=== PATIENT | male | born 1990 | race Caucasian/White ===

== ENCOUNTER → 2017-01-01 | Outpatient (REF) | payer BC ==
[2017-01-02 09:22] LABS: CONTROL LINE HPYORI INT CTR LINE PRESENT
== END ==
LOC: M LAB REF 16:20
PROVIDERS: ATTEND Nurse Practitioner Family
DX: R10.816 Epigastric abdominal tenderness (principal)

== ENCOUNTER → 2017-08-05 | Outpatient (REF) | payer BC ==
[2017-08-05 18:53] LABS: FOLATE 13.6 NG/ML
[2017-08-05 21:59] LABS: BACTERIA, URINE NONE SEEN; HYALINE CAST, URINE NONE SEEN /lpf (0-1); SQUAMOUS EPITHELIAL CELL URINE NONE SEEN /hpf (SMALL AMT); WBC, URINE NONE SEEN /hpf (0-3)
[2017-08-05 22:00] LABS: MICROSCOPIC EXAM PERFORMED
== END ==
LOC: M LAB REF 17:12
PROVIDERS: ATTEND Internal Medicine Nephrology
DX: R80.9 Proteinuria, unspecified (principal); D64.9 Anemia, unspecified

== ENCOUNTER 2017-12-31 20:16 | Emergency (ER) | payer BC ==
[2017-12-31] MEDS: LIDOCAINE 1% MDV 20ML VIAL SC (22:44)
[2017-12-31] MEDS: ADACEL/BOOSTRIX VACCINE (DIPHTH/PERTUSS/ACELL/TETANUS)0.5ML SYR (90715) IM (22:45)
== END 2017-12-31 23:31 | disposition home or self-care (01) ==
LOC: M ED 20:16
DX: S61.012A Laceration without foreign body of left thumb without damage to nail, initial encounter (principal); W31.2XXA Contact with powered woodworking and forming machines, initial encounter; Y92.89 Other specified places as the place of occurrence of the external cause; I12.9 Hypertensive chronic kidney disease with stage 1 through stage 4 chronic kidney disease, or unspecified chronic kidney disease; N18.9 Chronic kidney disease, unspecified; E11.9 Type 2 diabetes mellitus without complications; F17.200 Nicotine dependence, unspecified, uncomplicated; Z88.8 Allergy status to other drugs, medicaments and biological substances; Z91.030 Bee allergy status; Z79.899 Other long term (current) drug therapy
CPT/HCPCS: 90715

== ENCOUNTER 2018-02-26 17:03 | Emergency (ER) | payer BC ==
[2018-02-26] MEDS: NS 1,000 ML IV (18:13)
[2018-02-26] MEDS: METOCLOPRAMIDE INJ 10MG/2ML VIAL (J2765) IV (18:13)
[2018-02-26 18:25] LABS: BASO % 0.5 % (0.0-1.0); HEMATOCRIT 37.3 % (42.0-52.0); HEMOGLOBIN 13.2 g/dl (13.5-17.5); IMMATURE GRANULOCYTE % 0.3 % (0-3.0); LYMPH # 2.4 10^3/uL (1.5-6.5); LYMPH % 29.9 % (24.0-44.0); MEAN CORPUSCULAR HEMOGLOBIN 31.7 pg (27.0-33.0); MEAN CORPUSCULAR HGB CONC 35.4 g/dl (32.0-36.5); MEAN CORPUSCULAR VOLUME 89.4 fl (80.0-96.0); MONO # 0.8 10^3/uL (0.0-0.8); MONO % 9.7 % (0.0-5.0); NEUTROPHILS # 4.8 10^3/uL (1.8-7.7); NEUTROPHILS % 59.6 % (36.0-66.0); PLATELET COUNT, AUTOMATED 216 10^3/uL (150-450); RED BLOOD COUNT 4.17 10^6/uL (4.30-6.10); RED CELL DISTRIBUTION WIDTH 12.9 % (11.5-14.5)
[2018-02-26 18:48] LABS: ANION GAP 11 MEQ/L (8-16); BLOOD UREA NITROGEN 16 MG/DL (7-18); CALCIUM LEVEL 8.6 MG/DL (8.5-10.1); CARBON DIOXIDE LEVEL 24 MEQ/L (21-32); CHLORIDE LEVEL 103 MEQ/L (98-107); CREATININE FOR GFR 1.33 MG/DL (0.70-1.30); GLOMERULAR FILTRATION RATE > 60.0 (>60); GLUCOSE, FASTING 163 MG/DL (70-100); POTASSIUM SERUM 3.3 MEQ/L (3.5-5.1); SODIUM LEVEL 138 MEQ/L (136-145)
[2018-02-26] MEDS: KETOROLAC 30 MG/ML VIAL (J1885) IV (19:47)
== END 2018-02-26 20:30 | disposition home or self-care (01) ==
LOC: M ED 17:03
DX: R51 Headache (principal); T88.59XA Other complications of anesthesia, initial encounter; Y84.8 Other medical procedures as the cause of abnormal reaction of the patient, or of later complication, without mention of misadventure at the time of the procedure; I12.9 Hypertensive chronic kidney disease with stage 1 through stage 4 chronic kidney disease, or unspecified chronic kidney disease; N18.2 Chronic kidney disease, stage 2 (mild); E11.9 Type 2 diabetes mellitus without complications; F17.200 Nicotine dependence, unspecified, uncomplicated; Z88.8 Allergy status to other drugs, medicaments and biological substances; Z91.030 Bee allergy status; Z79.899 Other long term (current) drug therapy
CPT/HCPCS: J1885

== ENCOUNTER 2018-02-27 17:07 | Outpatient (CLI) | payer BC ==
[2018-02-27] MEDS ORDERED: MIDAZOLAM INJ 2 MG/2 ML VIAL (J2250) As Ordered (21:04)
[2018-02-27] MEDS: MIDAZOLAM INJ 2 MG/2 ML VIAL (J2250) IV (21:10)
== END 2018-02-27 22:05 ==
LOC: M SDC 22:15 → M RROUT 17:09
DX: G97.1 Other reaction to spinal and lumbar puncture (principal); I12.9 Hypertensive chronic kidney disease with stage 1 through stage 4 chronic kidney disease, or unspecified chronic kidney disease; N18.2 Chronic kidney disease, stage 2 (mild); E10.9 Type 1 diabetes mellitus without complications
CPT/HCPCS: 62273

== ENCOUNTER 2018-04-20 16:26 | Emergency (ER) | payer BC ==
[2018-04-20] MEDS: NS 1,000 ML IV (18:45)
[2018-04-20 19:00] LABS: VENOUS HCO3 22.2 MEQ/L (23.0-27.0); VENOUS O2 SATURATION 88.6 % (60.0-80.0); VENOUS PARTIAL PRESSURE CO2 40.1 mmHg (38.0-50.0); VENOUS PARTIAL PRESSURE O2 55.1 mmHg (30.0-50.0); VENOUS PH 7.361 UNITS (7.330-7.430); VENOUS STANDARD HCO3 21.8 MEQ/L; VENOUS TOTAL CO2 23.4 MEQ/L (24.0-28.0)
[2018-04-20 19:05] LABS: BASO % 0.2 % (0.0-1.0); HEMATOCRIT 40.5 % (42.0-52.0); IMMATURE GRANULOCYTE % 0.1 % (0-3.0); LYMPH # 2.1 10^3/uL (1.5-6.5); LYMPH % 25.2 % (24.0-44.0); MEAN CORPUSCULAR HEMOGLOBIN 32.1 pg (27.0-33.0); MEAN CORPUSCULAR HGB CONC 34.6 g/dl (32.0-36.5); MEAN CORPUSCULAR VOLUME 92.9 fl (80.0-96.0); MONO # 0.9 10^3/uL (0.0-0.8); MONO % 11.4 % (0.0-5.0); NEUTROPHILS # 5.1 10^3/uL (1.8-7.7); NEUTROPHILS % 63.1 % (36.0-66.0); PLATELET COUNT, AUTOMATED 223 10^3/uL (150-450); RED BLOOD COUNT 4.36 10^6/uL (4.30-6.10); RED CELL DISTRIBUTION WIDTH 12.3 % (11.5-14.5); WHITE BLOOD COUNT 8.1 10^3/uL (4.0-10.0)
[2018-04-20 19:23] LABS: ALBUMIN 4.1 GM/DL (3.2-5.2); ALBUMIN/GLOBULIN RATIO 1.21 (1.00-1.93); ALKALINE PHOSPHATASE 81 U/L (45-117); ALT/SGPT 24 U/L (12-78); AMYLASE 47 U/L (25-115); ANION GAP 10 MEQ/L (8-16); AST/SGOT 16 U/L (7-37); BILIRUBIN,DIRECT 0.2 MG/DL (0.0-0.2); BILIRUBIN,TOTAL 0.6 MG/DL (0.2-1.0); BLOOD UREA NITROGEN 11 MG/DL (7-18); CARBON DIOXIDE LEVEL 24 MEQ/L (21-32); CHLORIDE LEVEL 106 MEQ/L (98-107); CREATININE FOR GFR 1.21 MG/DL (0.70-1.30); GLOMERULAR FILTRATION RATE > 60.0 (>60); GLUCOSE, FASTING 141 MG/DL (70-100); LIPASE 148 U/L (73-393); POTASSIUM SERUM 3.6 MEQ/L (3.5-5.1); SODIUM LEVEL 140 MEQ/L (136-145); TOTAL PROTEIN 7.5 GM/DL (6.4-8.2)
[2018-04-20] MEDS ORDERED: ISOVUE-370 76% 100ML VIAL (Q9967) As Ordered (19:31)
[2018-04-20] MEDS: MORPHINE 2 MG/ML 1ML SYRINGE (J2270) IV (19:37)
[2018-04-20 20:06] LABS: KETONE, URINE AUTO RFX NEGATIVE (NEGATIVE); LEUKOCYTE ESTERASE UR AUTO RFX NEGATIVE (NEGATIVE); NITRITE, URINE AUTO RFX NEGATIVE (NEGATIVE); RBC, URINE AUTO RFX 3 /HPF (0-3); SPECIFIC GRAVITY UR AUTO RFX 1.002 (1.002-1.035); SQUAM EPITHELIAL CELL UR AURFX 0 /HPF (0-6); WBC, URINE AUTO RFX 0 /HPF (0-3)
[2018-04-26 14:41] LABS: BEDSIDE GLUCOSE 157 MG/DL (70-105)
== END 2018-04-20 20:50 | disposition home or self-care (01) ==
LOC: M ED 16:26
DX: R10.9 Unspecified abdominal pain (principal); R19.7 Diarrhea, unspecified; K57.30 Diverticulosis of large intestine without perforation or abscess without bleeding; E11.9 Type 2 diabetes mellitus without complications; I12.9 Hypertensive chronic kidney disease with stage 1 through stage 4 chronic kidney disease, or unspecified chronic kidney disease; F17.200 Nicotine dependence, unspecified, uncomplicated; N18.9 Chronic kidney disease, unspecified; Z88.8 Allergy status to other drugs, medicaments and biological substances; Z91.030 Bee allergy status; Z79.4 Long term (current) use of insulin; Z79.899 Other long term (current) drug therapy
CPT/HCPCS: Q9967

== ENCOUNTER → 2018-04-21 | Outpatient (REF) | payer BC | LOC: M LAB REF 10:02 | DX: R19.7 Diarrhea, unspecified (principal) | CPT/HCPCS: 87507 ==

== ENCOUNTER 2019-01-02 22:50 | Emergency (ER) | payer BC ==
[~2019-01-02] VITALS: Ht 170.2 cm; Wt 84.1 kg
[~2019-01-02 22:50] MED LIST: AMLO10TA5 PO; CARV25TA PO; CITA10TA5 PO; FAMO40TA3 PO; HYDR10TAB PO; HYDR12.55 PO; INSUH10VL SQ; SILD50TA2 PO; VALS1TAB67 PO
[2019-01-02] MEDS ORDERED: VALS1TAB66 PO (22:57)
[2019-01-02] MEDS ORDERED: GABA600T4 PO (22:57)
[2019-01-02] MEDS ORDERED: BACL1TAB8 PO (22:57)
[2019-01-02] MEDS ORDERED: LIDOCAINE 1% MDV 20ML VIAL As Ordered ONE (23:57)
[2019-01-03] MEDS ORDERED: LIDOCAINE 1% MDV 20ML VIAL SC ONE
[2019-01-03 00:37] VITALS: BP 150/88
== END 2019-01-03 00:39 | disposition home or self-care (01) ==
LOC: M ED 22:50
DX: S61.211A Laceration without foreign body of left index finger without damage to nail, initial encounter (principal); X58.XXXA Exposure to other specified factors, initial encounter; Y92.099 Unspecified place in other non-institutional residence as the place of occurrence of the external cause; Y93.9 Activity, unspecified; Y99.9 Unspecified external cause status; Z79.4 Long term (current) use of insulin; Z79.899 Other long term (current) drug therapy; Z91.030 Bee allergy status; Z88.8 Allergy status to other drugs, medicaments and biological substances

== ENCOUNTER → 2019-07-09 | Outpatient (REF) | payer BC ==
[~2019-07-09] MED LIST changes: +BACL1TAB8 PO; +GABA600T4 PO; +VALS1TAB66 PO
[2019-07-12 14:46] LABS: PERCENT SATURATION 12.6 % (19.7-50.0)
== END ==
LOC: M LAB REF 13:43
PROVIDERS: ATTEND Internal Medicine Nephrology
DX: D64.9 Anemia, unspecified (principal)

== ENCOUNTER 2019-10-07 11:41 | Day surgery (SDC) | payer BC ==
[~2019-10-07] VITALS: Ht 170.2 cm; Wt 95.3 kg
[~2019-10-07 11:41] MED LIST changes: +FERR32TA PO; +NS 1,000 ML IV ONE; +OMEP-221 PO; +PREG150C PO; +fentaNYL 100 MCG/2 ML INJECTION (J3010) As Ordered ONE
[2019-10-07] MEDS ORDERED: propofoL 200 MG/20 ML VIAL As Ordered ONE ×2 (12:05→12:43)
[2019-10-07] MEDS ORDERED: LIDOCAINE 2% INJ 100 MG/5 ML SDV (FOR ANES.) As Ordered ONE (12:05)
--- NOTE | 2019-10-07 12:38 | ROOR ---
Patient Name: Kelvin Fenton Procedure Date: 10/07/2019 12:23 PM Date of : 1990 Age: 28 Room: [facility] Gender: Male Note Status: Finalized Procedure: Upper GI endoscopy Indications: Suspected esophageal reflux Providers: Cameron Mata Jr, MD Referring MD: Og Guadalupe MD Requesting Provider: Medicines: Propofol per Anesthesia Complications: No immediate complications. Procedure: Pre-Anesthesia Assessment: - Prior to the procedure, a History and Physical was performed, and patient medications and allergies were reviewed. The patient is competent. The risks and benefits of the procedure and the sedation options and risks were discussed with the patient. All questions were answered and informed consent was obtained. Patient identification and proposed procedure were verified by the physician and the nurse in the pre-procedure area and in the procedure room. Mental Status Examination: alert and oriented. Airway Examination: normal oropharyngeal airway and neck mobility. Respiratory Examination: clear to auscultation. CV Examination: normal. ASA Grade Assessment: II - A patient with mild systemic disease. After reviewing the risks and benefits, the patient was deemed in satisfactory condition to undergo the procedure. The anesthesia plan was to use moderate sedation / analgesia (conscious sedation). Immediately prior to administration of medications, the patient was re-assessed for adequacy to receive sedatives. The heart rate, respiratory rate, oxygen saturations, blood pressure, adequacy of pulmonary ventilation, and response to care were monitored throughout the procedure. The physical status of the patient was re-assessed after the procedure. The Endoscope was introduced through the mouth, and advanced to the second part of duodenum. The upper GI endoscopy was accomplished without difficulty. The patient tolerated the procedure well. Findings: The upper third of the esophagus, middle third of the esophagus and lower third of the esophagus were normal. Diffuse mildly erythematous mucosa without bleeding was found on the greater curvature of the stomach, in the gastric antrum and in the prepyloric region of the stomach. Biopsies were taken with a cold forceps for histology. The cardia and gastric fundus were normal. The duodenal bulb, first portion of the duodenum and second portion of the duodenum were normal. Biopsies for histology were taken with a cold forceps for evaluation of celiac disease. Impression: - Normal upper third of esophagus, middle third of esophagus and lower third of esophagus. - Erythematous mucosa in the greater curvature, antrum and prepyloric region of the stomach. Biopsied. - Normal cardia and gastric fundus. - Normal duodenal bulb, first portion of the duodenum and second portion of the duodenum. Biopsied. Recommendation: - Discharge patient to home (ambulatory). - Return to my office as previously scheduled. Cameron Mata MD Cameron Mata Jr, MD 10/07/2019 12:37:51 PM Electronically signed by Cameron Mata Jr, MD Number of Addenda: 0 Note Initiated On: 10/07/2019 12:23 PM Estimated Blood Loss: Estimated blood loss: none.
--- NOTE | 2019-10-07 12:51 | ROOR ---
Patient Name: Kelvin Fenton Procedure Date: 10/07/2019 12:23 PM Date of : 1990 Age: 28 Room: [facility] Gender: Male Note Status: Finalized Procedure: Colonoscopy Indications: Chronic diarrhea Providers: Cameron Mata Jr, MD Referring MD: Og Guadalupe MD Requesting Provider: Medicines: Propofol per Anesthesia Complications: No immediate complications. Procedure: Pre-Anesthesia Assessment: - Prior to the procedure, a History and Physical was performed, and patient medications and allergies were reviewed. The patient is competent. The risks and benefits of the procedure and the sedation options and risks were discussed with the patient. All questions were answered and informed consent was obtained. Patient identification and proposed procedure were verified by the physician and the nurse in the pre-procedure area and in the procedure room. Mental Status Examination: alert and oriented. Airway Examination: normal oropharyngeal airway and neck mobility. Respiratory Examination: clear to auscultation. CV Examination: normal. ASA Grade Assessment: II - A patient with mild systemic disease. After reviewing the risks and benefits, the patient was deemed in satisfactory condition to undergo the procedure. The anesthesia plan was to use moderate sedation / analgesia (conscious sedation). Immediately prior to administration of medications, the patient was re-assessed for adequacy to receive sedatives. The heart rate, respiratory rate, oxygen saturations, blood pressure, adequacy of pulmonary ventilation, and response to care were monitored throughout the procedure. The physical status of the patient was re-assessed after the procedure. The Colonoscope was introduced through the anus and advanced to the cecum, identified by appendiceal orifice and ileocecal valve. The colonoscopy was performed without difficulty. The patient tolerated the procedure well. The quality of the bowel preparation was adequate. Findings: The rectum, recto-sigmoid colon, sigmoid colon, descending colon, transverse colon, ascending colon, cecum, appendiceal orifice and ileocecal valve appeared normal. Biopsies for histology were taken with a cold forceps from the ascending colon, transverse colon, descending colon and sigmoid colon for evaluation of microscopic colitis. Impression: - The rectum, recto-sigmoid colon, sigmoid colon, descending colon, transverse colon, ascending colon, cecum, appendiceal orifice and ileocecal valve are normal. Biopsied. Recommendation: - Discharge patient to home (ambulatory). - Repeat colonoscopy at age 48 for screening purposes. Cameron Mata MD Cameron Mata Jr, MD 10/07/2019 12:51:37 PM Electronically signed by Cameron Mata Jr, MD Number of Addenda: 0 Note Initiated On: 10/07/2019 12:23 PM Estimated Blood Loss: Estimated blood loss: none.
[2019-10-07 13:20] VITALS: BP 136/96
== END 2019-10-07 13:33 | disposition home or self-care (01) ==
LOC: M OPP 11:41
PROVIDERS: ATTEND Surgery
DX: K62.5 Hemorrhage of anus and rectum (principal); R19.7 Diarrhea, unspecified; K31.89 Other diseases of stomach and duodenum; K21.9 Gastro-esophageal reflux disease without esophagitis; I12.9 Hypertensive chronic kidney disease with stage 1 through stage 4 chronic kidney disease, or unspecified chronic kidney disease; N18.9 Chronic kidney disease, unspecified; E10.22 Type 1 diabetes mellitus with diabetic chronic kidney disease; F41.9 Anxiety disorder, unspecified; M54.9 Dorsalgia, unspecified; Z79.899 Other long term (current) drug therapy; Z88.8 Allergy status to other drugs, medicaments and biological substances; Z91.030 Bee allergy status
CPT/HCPCS: 43239; 45380; 88305; J3010

== ENCOUNTER → 2020-05-24 | Outpatient (REF) | payer BC ==
[~2020-05-24] MED LIST changes: -AMLO10TA5 PO; +AMLO1TAB25 PO; -NS 1,000 ML IV ONE; -fentaNYL 100 MCG/2 ML INJECTION (J3010) As Ordered ONE
== END ==
LOC: M LAB REF 18:59
PROVIDERS: ATTEND Urology
DX: Z30.2 Encounter for sterilization (principal)

== ENCOUNTER → 2021-03-02 | Outpatient (CLI) | payer BC ==
--- NOTE | 2021-03-02 16:41 | REPVR ---
PROCEDURE INFORMATION: Exam: MR Thoracic Spine Without Contrast Exam date and time: 03/02/2021 10:26 AM Age: 30 years old Clinical indication: Pain in thoracic spine TECHNIQUE: Imaging protocol: Multiplanar magnetic resonance images of the thoracic spine without contrast. COMPARISON: CT ABD/PEL W/IV CONTRAST ONLY 04/20/2018 7:26 PM FINDINGS: Thoracic vertebral body heights are maintained. No abnormal marrow signal. No cord compression. No abnormal cord signal. Thoracic kyphosis is preserved. Disc space heights are preserved. Small posterior central disc protrusion at T8-T9 causing focal central mild canal narrowing. Thoracic spinal canal is otherwise widely patent. Soft tissues are unremarkable. IMPRESSION: 1. No acute findings in the thoracic spine. 2. Chronic findings, as above. Electronically signed by: Festus Laughlin On 03/02/2021 16:41:35 PM
== END ==
LOC: M PLAIMG 09:37
PROVIDERS: ATTEND Nurse Practitioner Family
DX: M51.24 Other intervertebral disc displacement, thoracic region (principal); M40.204 Unspecified kyphosis, thoracic region

== ENCOUNTER → 2021-06-26 | Outpatient (REF) | payer BC | LOC: M LAB REF 18:04 | PROVIDERS: ATTEND Nurse Practitioner Family | DX: N18.2 Chronic kidney disease, stage 2 (mild) (principal) ==

== ENCOUNTER → 2022-01-07 | Outpatient (CLI) | payer BC ==
[~2022-01-07] MED LIST changes: -CITA10TA5 PO; +CITA10TA7 PO; -OMEP-221 PO; +OMEP40CA5 PO
== END ==
LOC: M RAD 06:54
PROVIDERS: ATTEND Nurse Practitioner Family
DX: I12.9 Hypertensive chronic kidney disease with stage 1 through stage 4 chronic kidney disease, or unspecified chronic kidney disease (principal); N18.31 Chronic kidney disease, stage 3a

== ENCOUNTER → 2022-07-31 | Outpatient (REF) | payer BC | LOC: M LAB REF 15:35 | PROVIDERS: ATTEND Surgery | DX: D23.5 Other benign neoplasm of skin of trunk (principal) ==

== ENCOUNTER → 2022-10-02 | Outpatient (REF) | payer BC ==
[2022-10-03 08:09] LABS: LDL DIRECT 52 mg/dL (0-99)
== END ==
LOC: M LAB REF 12:30
PROVIDERS: ATTEND Family Medicine
DX: D48.5 Neoplasm of uncertain behavior of skin (principal)

== ENCOUNTER 2023-03-04 16:01 | Emergency (ER) | payer BC ==
[~2023-03-04] VITALS: Ht 170.2 cm; Wt 95.6 kg
[2023-03-04] MEDS ORDERED: ACETAMINOPHEN 1000MG 100ML IV BAG IV ONE (18:50)
[2023-03-04 19:20] LABS: HEMATOCRIT 36.1 % (42.0-52.0); HEMOGLOBIN 12.4 g/dl (13.5-17.5); LYMPH % 34.7 % (24.0-44.0); MEAN CORPUSCULAR HEMOGLOBIN 30.5 pg (27.0-33.0); MEAN CORPUSCULAR HGB CONC 34.3 g/dl (32.0-36.5); MEAN CORPUSCULAR VOLUME 88.7 fl (80.0-96.0); MONO # 0.7 10^3/uL (0.0-0.8); MONO % 24.1 % (2.0-8.0); NEUTROPHILS # 1.2 10^3/uL (1.5-8.5); NEUTROPHILS % 40.9 % (36.0-66.0); PLATELET COUNT, AUTOMATED 191 10^3/uL (150-450); RED BLOOD COUNT 4.07 10^6/uL (4.30-6.10); WHITE BLOOD COUNT 2.9 10^3/uL (4.0-10.0)
[2023-03-04 19:51] LABS: LIPASE 20 U/L (12-53)
[2023-03-04 19:53] LABS: ALBUMIN 3.2 G/DL (3.2-5.2); ALKALINE PHOSPHATASE 69 U/L (46-116); ALT/SGPT 12 U/L (7.0-40); AST/SGOT < 8 U/L (<34); BILIRUBIN,DIRECT 0.3 MG/DL (<0.4); BILIRUBIN,TOTAL 0.8 MG/DL (0.3-1.2); BLOOD UREA NITROGEN 26 MG/DL (9-23); CALCIUM LEVEL 8.2 MG/DL (8.5-10.1); CARBON DIOXIDE LEVEL 23 MMOL/L (20-31); CHLORIDE LEVEL 99 MMOL/L (98-107); CREATININE FOR GFR 1.69 MG/DL (0.70-1.30); GLOMERULAR FILTRATION RATE 49.7 (>60); GLUCOSE, FASTING 138 MG/DL (60-100); POTASSIUM SERUM 4.2 MMOL/L (3.5-5.1); SODIUM LEVEL 130 MMOL/L (136-145)
[2023-03-04 22:17] VITALS: BP 136/84; TEMP 98.1; O2SAT 99
[2023-03-04] MEDS ORDERED: LevoFLOXacin 500 MG TABLET PO ONE (22:40)
[2023-03-04] MEDS ORDERED: LEVO1TAB39 PO ×2 (22:45→22:46)
[2023-03-04] MEDS ORDERED: SUPR400C PO (23:02)
== END 2023-03-04 23:20 | disposition home or self-care (01) ==
LOC: M ED 16:01
DX: A02.0 Salmonella enteritis (principal); E11.9 Type 2 diabetes mellitus without complications; I12.9 Hypertensive chronic kidney disease with stage 1 through stage 4 chronic kidney disease, or unspecified chronic kidney disease; N18.30 Chronic kidney disease, stage 3 unspecified; Z88.8 Allergy status to other drugs, medicaments and biological substances; Z91.030 Bee allergy status; Z79.4 Long term (current) use of insulin; Z79.899 Other long term (current) drug therapy
CPT/HCPCS: 80048; 80076; 83605; 83690; 85025; 87040; 87486; 87507; 87581; 87633; 87798; 96374; 99284; J0131

== ENCOUNTER → 2024-02-13 | Outpatient (REF) | payer BC ==
[~2024-02-13] MED LIST changes: +HYDR-161 PO; -HYDR10TAB PO; +LEVO1TAB39 PO; -PREG150C PO; +PREG150C2 PO; +SUPR400C PO
== END ==
LOC: M LAB REF 16:15
PROVIDERS: ATTEND Family Medicine
DX: R10.816 Epigastric abdominal tenderness (principal)

== ENCOUNTER → 2024-06-09 | Outpatient (REF) | payer BC ==
[~2024-06-09] MED LIST changes: +GABA-1490 PO; -GABA600T4 PO
[2024-06-11 08:03] LABS: LDL DIRECT 70 mg/dL (<100)
== END ==
LOC: M LAB REF 16:26
PROVIDERS: ATTEND Family Medicine
DX: K76.0 Fatty (change of) liver, not elsewhere classified (principal); E78.5 Hyperlipidemia, unspecified

== ENCOUNTER → 2024-07-14 | Outpatient (CLI) | payer BC ==
[~2024-07-14] MED LIST changes: +E-Z-GAS II EFFERVESCENT PACKET (SODIUM BICARB./CITRIC ACID/SIMETHICONE) As Ordered ONE; +E-Z-HD 98% w/w 340GM SUSP BTL As Ordered ONE; +E-Z-PAQUE 96% w/w SUSP 176GM BTL As Ordered ONE
== END ==
LOC: M RAD 10:08
PROVIDERS: ATTEND Family Medicine
DX: R10.816 Epigastric abdominal tenderness (principal); K44.9 Diaphragmatic hernia without obstruction or gangrene

== ENCOUNTER → 2024-08-16 | Outpatient (REF) | payer BC ==
[~2024-08-16] MED LIST changes: -E-Z-GAS II EFFERVESCENT PACKET (SODIUM BICARB./CITRIC ACID/SIMETHICONE) As Ordered ONE; -E-Z-HD 98% w/w 340GM SUSP BTL As Ordered ONE; -E-Z-PAQUE 96% w/w SUSP 176GM BTL As Ordered ONE
[2024-08-16 18:51] LABS: FERRITIN 488.4 NG/ML (10.5-307.3)
[2024-08-16 18:56] LABS: PERCENT SATURATION 16.1 % (19.7-50.0)
== END ==
LOC: M LAB REF 17:26
PROVIDERS: ATTEND Nurse Practitioner Family
DX: D50.9 Iron deficiency anemia, unspecified (principal)

== ENCOUNTER → 2024-10-15 | Outpatient (REF) | payer BC ==
[2024-10-17 04:22] LABS: LDL DIRECT 63 mg/dL (<100)
== END ==
LOC: M LAB REF 13:02
PROVIDERS: ATTEND Family Medicine
DX: E78.5 Hyperlipidemia, unspecified (principal)

== ENCOUNTER → 2024-11-18 | Outpatient (CLI) | payer BC ==
[2024-11-18 18:53] LABS: ALBUMIN 3.4 G/DL (3.2-5.2); CALCIUM LEVEL 9.3 MG/DL (8.5-10.1); CREATININE FOR GFR 1.63 MG/DL (0.70-1.30); GLOMERULAR FILTRATION RATE 51.2 (>60); PHOSPHORUS LEVEL 3.7 MG/DL (2.5-4.9); POTASSIUM SERUM 3.4 MMOL/L (3.5-5.1)
== END ==
LOC: M LAB 17:15
PROVIDERS: ATTEND Nurse Practitioner Family
DX: N18.31 Chronic kidney disease, stage 3a (principal)

== ENCOUNTER → 2025-03-10 | Outpatient (REF) | payer BC ==
[2025-03-10 19:46] LABS: VITAMIN B12 LEVEL 386 PG/ML (211-911)
== END ==
LOC: M LAB REF 17:16
PROVIDERS: ATTEND Nurse Practitioner Family
DX: D64.9 Anemia, unspecified (principal); R53.83 Other fatigue

== ENCOUNTER → 2025-04-08 | Outpatient (CLI) | payer BC | LOC: M RAD 08:43 | PROVIDERS: ATTEND Family Medicine | DX: K76.0 Fatty (change of) liver, not elsewhere classified (principal) ==

== ENCOUNTER 2025-04-17 21:16 | Observation (INO) | payer BC ==
[~2025-04-17] VITALS: Ht 170.2 cm; Wt 91.5 kg
[2025-04-17 23:05] LABS: BASO # 0.1 10^3/uL (0.0-0.2); BASO % 0.7 % (0.0-1.0); EOS # 0.2 10^3/uL (0.0-0.5); EOS % 2.4 % (0.0-3.0); INR 0.84; LYMPH # 3.0 10^3/uL (1.5-5.0); LYMPH % 41.3 % (24.0-44.0); MONO # 0.6 10^3/uL (0.0-0.8); MONO % 9.0 % (2.0-8.0); NEUTROPHILS # 3.3 10^3/uL (1.5-8.5); NEUTROPHILS % 46.0 % (36.0-66.0); PLATELET COUNT, AUTOMATED 316 10^3/uL (150-450)
[2025-04-17 23:20] LABS: CK-MB VALUE MASS 1.6 NG/ML (<3.6)
[2025-04-17 23:24] LABS: FREE T4 1.70 NG/DL (0.89-1.76)
[2025-04-17 23:25] LABS: ALT/SGPT 86 U/L (7.0-40); AST/SGOT 161 U/L (<34); CALCIUM LEVEL 8.2 MG/DL (8.5-10.1); CARBON DIOXIDE LEVEL 27 MMOL/L (20-31); CHLORIDE LEVEL 95 MMOL/L (98-107); CPK CREATINE PHOSPHOKINASE 120 U/L (46-171); CREATININE FOR GFR 2.11 MG/DL (0.70-1.30); GLOMERULAR FILTRATION RATE 40.8 (>60); MB/CK RELATIVE INDEX 1.33 (< OR =4); POTASSIUM SERUM 4.1 MMOL/L (3.5-5.1); SODIUM LEVEL 134 MMOL/L (136-145)
[2025-04-17] MEDS: NS (Normal Saline) 0.9% 1,000 ML IV ONE (23:54)
[2025-04-18 00:49] LABS: CK-MB VALUE MASS 1.2 NG/ML (<3.6); CPK CREATINE PHOSPHOKINASE 112.0 U/L (46-171); MB/CK RELATIVE INDEX 1.07 (< OR =4)
[2025-04-18 02:09] LABS: ETHYL ALCOHOL (ETHANOL) 0.067 % (0.000-0.010)
[2025-04-18 03:16] LABS: MAGNESIUM LEVEL 1.8 MG/DL (1.8-2.4); PHOSPHORUS LEVEL 1.9 MG/DL (2.5-4.9)
[2025-04-18] MEDS ORDERED: GLUCOSE 4 GM CHEW PO PRN (03:30)
[2025-04-18] MEDS ORDERED: ACETAMINOPHEN 325 MG TAB PO PRN (03:30)
[2025-04-18] MEDS ORDERED: MAALOX 30 ML SUSP *UDC PO PRN (03:30)
[2025-04-18] MEDS ORDERED: GLUCAGON INJ 1 MG VIAL SC PRN (03:30)
[2025-04-18] MEDS ORDERED: DEXTROSE 50% 50 ML SYRINGE IV PRN (03:30)
[2025-04-18] MEDS ORDERED: LOPE1CAP5 PO (03:44)
[2025-04-18] MEDS ORDERED: SPIR-10 PO (03:44)
[2025-04-18] MEDS ORDERED: ALLO100T PO (03:44)
[2025-04-18] MEDS ORDERED: VITA1CAP25 PO (03:44)
[2025-04-18] MEDS ORDERED: FURO40TA2 PO (03:44)
[2025-04-18] MEDS ORDERED: AMLO2.5T3 PO (03:44)
[2025-04-18] MEDS ORDERED: VALS1TAB68 PO (03:44)
[2025-04-18] MEDS ORDERED: SILD100T PO (03:44)
[2025-04-18] MEDS ORDERED: CELE20TA PO (03:44)
[2025-04-18] MEDS ORDERED: FAMO1TAB11 PO (03:44)
[2025-04-18] MEDS ORDERED: OMEP-173 PO (03:44)
[2025-04-18] MEDS ORDERED: CALC1CAP31 PO (03:44)
[2025-04-18] MEDS ORDERED: TRAM50TA2 PO (03:44)
[2025-04-18] MEDS ORDERED: RENATAB5 PO (03:44)
[2025-04-18] MEDS ORDERED: ATOR1TAB19 PO (03:44)
[2025-04-18] MEDS ORDERED: ECOT81TA5 PO (03:44)
[2025-04-18] MEDS ORDERED: PREG100C2 PO (03:44)
[2025-04-18] MEDS ORDERED: SEVE800T3 PO (03:44)
[2025-04-18] MEDS ORDERED: MAGN250T7 PO (03:44)
[2025-04-18] MEDS ORDERED: ICOS1CAP PO (03:44)
[2025-04-18] MEDS ORDERED: HOME MED LIST COMPLETE! XX SCH (03:50)
[2025-04-18] MEDS: NS (Normal Saline) 0.9% 1,000 ML IV SCH (04:42)
[2025-04-18] MEDS: OXAZEPAM 15MG CAP PO SCH (06:51)
[2025-04-18] MEDS: INSULIN LISPRO (NovoLOG) PER UNIT SC SCH (07:30)
[2025-04-18] MEDS: THIAMINE 100 MG TAB PO SCH (08:46)
[2025-04-18] MEDS: DOCUSATE SODIUM 100 MG CAPSULE PO SCH (08:46)
[2025-04-18] MEDS: FOLIC ACID 1 MG TAB PO SCH (08:46)
[2025-04-18] MEDS: HEPARIN SOD 5000 UNITS/ML 1 ML VIAL/SYRINGE SC SCH (08:48)
[2025-04-18] MEDS: MULTIVITAMINS/MINERALS THERAP 1 TAB PO SCH (08:49)
[2025-04-18 08:57] LABS: CALCIUM LEVEL 7.6 MG/DL (8.5-10.1); CARBON DIOXIDE LEVEL 28.0 MMOL/L (20-31); CHLORIDE LEVEL 96.0 MMOL/L (98-107); CREATININE FOR GFR 1.63 MG/DL (0.70-1.30); GLOMERULAR FILTRATION RATE 55.7 (>60); POTASSIUM SERUM 4.7 MMOL/L (3.5-5.1); SODIUM LEVEL 135.0 MMOL/L (136-145)
[2025-04-18] MEDS ORDERED: THIAMINE 100 MG TAB PO SCH (09:00)
[2025-04-18] MEDS ORDERED: FOLIC ACID 1 MG TAB PO SCH (09:00)
[2025-04-18] MEDS ORDERED: MULTIVITAMINS/MINERALS THERAP 1 TAB PO SCH (09:00)
[2025-04-18 09:02] LABS: BASO # 0.1 10^3/uL (0.0-0.2); BASO % 0.9 % (0.0-1.0); EOS # 0.2 10^3/uL (0.0-0.5); EOS % 2.6 % (0.0-3.0); LYMPH # 2.7 10^3/uL (1.5-5.0); LYMPH % 41.4 % (24.0-44.0); MONO # 0.7 10^3/uL (0.0-0.8); MONO % 10.3 % (2.0-8.0); NEUTROPHILS # 3.0 10^3/uL (1.5-8.5); NEUTROPHILS % 44.5 % (36.0-66.0); PLATELET COUNT, AUTOMATED 290 10^3/uL (150-450)
[2025-04-18] MEDS: LACTULOSE 20 GM/30 ML SYRUP UDC PO SCH (12:27)
[2025-04-18 13:38] VITALS: BP 131/83; TEMP 98.4; O2SAT 98
[2025-04-18 14:00] VITALS: BP 131/83; O2SAT 97
[2025-04-18 19:35] VITALS: BP 138/79; TEMP 98.2; O2SAT 97
[2025-04-18] MEDS: OMEPRAZOLE 20MG CAP PO SCH (20:28)
[2025-04-18] MEDS: FAMOTIDINE 20 MG TAB PO SCH (20:30)
[2025-04-18] MEDS: ASPIRIN 81 MG ENTERIC TABLET PO SCH (20:30)
[2025-04-18] MEDS: PREGABALIN 100 MG CAP PO SCH (20:30)
[2025-04-18] MEDS: traMADol 50 MG TAB PO PRN (20:51)
[2025-04-18] MEDS: SEVELAMER *CARBONate* 800 MG TAB PO SCH (20:52)
[2025-04-18 21:00] VITALS: BP 138/79
[2025-04-18] MEDS ORDERED: INSULIN LISPRO (NovoLOG) PER UNIT SC SCH (21:00)
[2025-04-19 04:00] VITALS: BP 124/79; TEMP 98; O2SAT 98
[2025-04-19 05:00] VITALS: BP 124/79
[2025-04-19 05:09] VITALS: O2SAT 97
[2025-04-19] MEDS: OXAZEPAM 15MG CAP PO SCH (06:02)
[2025-04-19 07:34] LABS: PLATELET COUNT, AUTOMATED 278 10^3/uL (150-450)
[2025-04-19 08:02] LABS: ALT/SGPT 80.0 U/L (7.0-40); AST/SGOT 134.0 U/L (<34); CALCIUM LEVEL 8.4 MG/DL (8.5-10.1); CARBON DIOXIDE LEVEL 26.0 MMOL/L (20-31); CHLORIDE LEVEL 103.0 MMOL/L (98-107); CREATININE FOR GFR 1.11 MG/DL (0.70-1.30); GLOMERULAR FILTRATION RATE 88.3 (>60); MAGNESIUM LEVEL 1.8 MG/DL (1.8-2.4); POTASSIUM SERUM 4.2 MMOL/L (3.5-5.1); SODIUM LEVEL 141.0 MMOL/L (136-145)
[2025-04-19 08:30] VITALS: BP 136/81
[2025-04-19] MEDS ORDERED: LACT20EL PO (09:29)
[2025-04-19] MEDS ORDERED: CHLO125TA PO (09:35)
== END 2025-04-19 11:30 | disposition home or self-care (01) ==
LOC: M ED 21:16 → M ED INP 21:17 → M MS4PR 04-18 14:19
PROVIDERS: ADMIT Student in an Organized Health Care Education/Training Program; ATTEND Student in an Organized Health Care Education/Training Program
DX: N17.9 Acute kidney failure, unspecified (principal); N18.30 Chronic kidney disease, stage 3 unspecified; D50.9 Iron deficiency anemia, unspecified; G89.29 Other chronic pain; E10.40 Type 1 diabetes mellitus with diabetic neuropathy, unspecified; K76.0 Fatty (change of) liver, not elsewhere classified; Z79.4 Long term (current) use of insulin; Z96.41 Presence of insulin pump (external) (internal); K44.9 Diaphragmatic hernia without obstruction or gangrene; F41.9 Anxiety disorder, unspecified; F32.A Depression, unspecified; F10.239 Alcohol dependence with withdrawal, unspecified; E86.0 Dehydration; T46.4X5A Adverse effect of angiotensin-converting-enzyme inhibitors, initial encounter; T50.2X5A Adverse effect of carbonic-anhydrase inhibitors, benzothiadiazides and other diuretics, initial encounter; E72.20 Disorder of urea cycle metabolism, unspecified; K29.90 Gastroduodenitis, unspecified, without bleeding; G50.9 Disorder of trigeminal nerve, unspecified; Z79.82 Long term (current) use of aspirin; Z79.899 Other long term (current) drug therapy

== ENCOUNTER → 2025-04-27 | Outpatient (REF) | payer BC ==
[~2025-04-27] MED LIST changes: +ALLO100T PO; +AMLO2.5T3 PO; +ATOR1TAB19 PO; +CALC1CAP31 PO; +CELE20TA PO; +CHLO125TA PO; +ECOT81TA5 PO; +FAMO1TAB11 PO; +FURO40TA2 PO; +ICOS1CAP PO; +LACT20EL PO; +LOPE1CAP5 PO; +MAGN250T7 PO; +OMEP-173 PO; +PREG100C2 PO; +RENATAB5 PO; +SEVE800T3 PO; +SILD100T PO; +SPIR-10 PO; +TRAM50TA2 PO; +VALS1TAB68 PO; +VITA1CAP25 PO
[2025-04-27 20:07] LABS: ALT/SGPT 43.0 U/L (7.0-40); AST/SGOT 34.0 U/L (<34); CALCIUM LEVEL 9.0 MG/DL (8.5-10.1); CARBON DIOXIDE LEVEL 25.0 MMOL/L (20-31); CHLORIDE LEVEL 104.0 MMOL/L (98-107); CREATININE FOR GFR 1.51 MG/DL (0.70-1.30); GLOMERULAR FILTRATION RATE 61.0 (>60); POTASSIUM SERUM 5.6 MMOL/L (3.5-5.1); SODIUM LEVEL 137.0 MMOL/L (136-145)
[2025-04-27 20:11] LABS: BASO # 0.0 10^3/uL (0.0-0.2); BASO % 0.5 % (0.0-1.0); EOS # 0.2 10^3/uL (0.0-0.5); EOS % 2.5 % (0.0-3.0); LYMPH # 2.9 10^3/uL (1.5-5.0); LYMPH % 39.8 % (24.0-44.0); MONO # 0.9 10^3/uL (0.0-0.8); MONO % 12.6 % (2.0-8.0); NEUTROPHILS # 3.2 10^3/uL (1.5-8.5); NEUTROPHILS % 44.2 % (36.0-66.0); PLATELET COUNT, AUTOMATED 364 10^3/uL (150-450)
== END ==
LOC: M LABWUC 18:07
PROVIDERS: ATTEND Family Medicine
DX: D64.9 Anemia, unspecified (principal)

== ENCOUNTER → 2025-05-03 | Outpatient (REF) | payer BC | LOC: M LAB REF 16:40 | PROVIDERS: ATTEND Nurse Practitioner Family | DX: K76.82 Hepatic encephalopathy (principal) ==

== ENCOUNTER → 2025-06-02 | Outpatient (REF) | payer BC ==
[2025-06-03 18:14] LABS: TOTAL PROTEIN,RANDOM URINE 123.2 MG/DL (0.0-14.0)
== END ==
LOC: M LAB REF 16:50
PROVIDERS: ATTEND Nurse Practitioner Family
DX: R80.9 Proteinuria, unspecified (principal)

== ENCOUNTER → 2025-06-28 | Outpatient (REF) | payer BC | LOC: M LAB REF 11:57 | PROVIDERS: ATTEND Family Medicine | DX: K70.9 Alcoholic liver disease, unspecified (principal) ==

== ENCOUNTER → 2025-07-11 | Outpatient (CLI) | payer BC | LOC: M SLEEP HO 06-27 11:46 | PROVIDERS: ATTEND Physician Assistant | DX: G47.33 Obstructive sleep apnea (adult) (pediatric) (principal) ==